=== PATIENT | female | born 1970 | race Caucasian/White ===

== ENCOUNTER 2022-01-12 14:47 | Observation (INO) | payer OTHER ==
[2022-01-12] MEDS ORDERED: KETOROLAC TROMETHAMINE 15 MG/ML VIAL IVPUSH ONE (15:06)
[2022-01-12] MEDS ORDERED: KETOROLAC TROMETHAMINE 15 MG/ML VIAL ONE (15:22)
[2022-01-12 15:31] LABS: HEMATOCRIT 24.2 % (32.4-45.2); HEMOGLOBIN 7.6 G/dL (10.7-15.3); MCHC 31.4 g/dl (32.0-36.0); MEAN CELL VOLUME 59.7 fl (80-96); MEAN PLT VOLUME 8.4 fl (7.5-11.1); PLATELET COUNT 325.4 10^3/uL (134-434); RBC 4.05 10^6/uL (3.60-5.2); RDW 21.2 % (11.6-15.6); WHITE BLOOD COUNT 8.1 10^3/uL (4.0-10.8)
[2022-01-12 15:38] LABS: MCH 18.8 pg (25.7-33.7)
[2022-01-12 15:52] LABS: ALBUMIN 4.1 g/dl (3.4-5.0); BILIRUBIN,TOTAL 0.7 mg/dl (0.2-1); CALCIUM 9.1 mg/dl (8.5-10); CREATININE 0.6 mg/dl (0.55-1.3); TOT PROT 6.8 g/dl (6.4-8.2)
[2022-01-12] MEDS ORDERED: POTASSIUM CHLORIDE TABS 20 MEQ TABLET.ER (FP) PO ONE ×2 (17:21→17:44)
[2022-01-12 18:02] LABS: ANISOCYTOSIS 2+; PLATELET ESTIMATE ADEQUATE
[2022-01-12 18:30] VITALS: BMI 25.9
[2022-01-12] MEDS ORDERED: ACETAMINOPHEN 1000 MG/100 ML BAG IVPB ONE (21:17)
[2022-01-12] MEDS: ATORVASTATIN CA 40 MG TABLET (FP) PO SCH (21:53)
[2022-01-13] MEDS: LISINOPRIL 20 MG TABLET PO SCH (09:31)
[2022-01-13 09:33] LABS: CALCIUM 9.1 mg/dl (8.5-10); CREATININE 0.7 mg/dl (0.55-1.3)
[2022-01-13 09:37] LABS: CHOLESTEROL 145 mg/dl (50-200); HDL CHOLESTEROL 42 mg/dl (40-60); LDL CHOLESTEROL (ONLY DFH) 80 mg/dl (5-100); TRIGLYCERIDES 113 mg/dl (0-150)
[2022-01-13 10:33] LABS: HEMATOCRIT 28.7 % (32.4-45.2); HEMOGLOBIN 9.4 G/dL (10.7-15.3); MCH 20.8 pg (25.7-33.7); MCHC 32.7 g/dl (32.0-36.0); MEAN CELL VOLUME 63.6 fl (80-96); MEAN PLT VOLUME 8.7 fl (7.5-11.1); PLATELET COUNT 300.5 10^3/uL (134-434); RBC 4.51 10^6/uL (3.60-5.2); RDW 23.1 % (11.6-15.6); WHITE BLOOD COUNT 8.4 10^3/uL (4.0-10.8)
[2022-01-13] MEDS: ASPIRIN 81 MG CHEWABLE TABLETS PO SCH (12:27)
[2022-01-13] MEDS: HEPARIN NA (PORCINE) 5,000 UNITS/ML 1ML VIAL SQ SCH ×3 (15:21→21:40)
[2022-01-13] MEDS: ATORVASTATIN CA 40 MG TABLET (FP) PO SCH (21:36)
[2022-01-14] MEDS: HEPARIN NA (PORCINE) 5,000 UNITS/ML 1ML VIAL SQ SCH (06:26)
[2022-01-14] MEDS: LISINOPRIL 20 MG TABLET PO SCH (09:58)
[2022-01-14] MEDS: ASPIRIN 81 MG CHEWABLE TABLETS PO SCH (09:58)
[2022-01-14 11:05] VITALS: BP 106/61; PULSE 66; TEMP 98.8
== END 2022-01-14 10:30 | disposition home or self-care (01) ==
LOC: FER 14:47 → FM/S 17:48
PROVIDERS: ADMIT Internal Medicine; ATTEND Nurse Practitioner Acute Care
PROC: 3E0333Z Introduction of Anti-inflammatory into Peripheral Vein, Percutaneous Approach (ICD-10-PCS; principal; 2022-01-12)
DX: R07.9 Chest pain, unspecified (principal); I10 Essential (primary) hypertension; E78.5 Hyperlipidemia, unspecified; Z86.16 Personal history of COVID-19; I77.6 Arteritis, unspecified; E87.6 Hypokalemia; D50.9 Iron deficiency anemia, unspecified; Z86.73 Personal history of transient ischemic attack (TIA), and cerebral infarction without residual deficits; Z29.8 Encounter for other specified prophylactic measures
CPT/HCPCS: 36415; 36430; 70450-TC; 71046-TC-FY; 80048; 80053; 80061; 82272; 82728; 83540; 83550; 84484; 85025; 85027; 86850; 86900; 86901; 86922; 93005; 93010; 96374; 99285-25; C9803-CS; G0378; J1644; P9058; U0003; U0005